=== PATIENT | female | born 1960 | race Caucasian/White ===

== ENCOUNTER 2021-03-01 18:05 | Outpatient (CLI) | payer OTHER, SELFPAY ==
[2021-03-01 18:17] VITALS: BP 124/65; PULSE 97; RESP 18; TEMP 38.3; O2SAT 94; BMI 37.8
[2021-03-01] MEDS: 0.9% Saline Lock 10 ML Syringe IV (18:28)
[2021-03-01 19:09] VITALS: BP 120/55; PULSE 91; RESP 16; TEMP 37.9; O2SAT 94
[2021-03-01 19:50] VITALS: BP 106/58; PULSE 99; RESP 16; TEMP 38.4; O2SAT 96
== END 2021-03-01 20:00 | disposition home or self-care (01) ==
LOC: MS3OUT 18:07 → MS3 18:08
PROVIDERS: Referring Provider Nurse Practitioner Adult Health; Visit Provider Nurse Practitioner Adult Health
DX: Z23 Encounter for immunization (principal); U07.1 COVID-19
CPT/HCPCS: J7050; M0245; Q0245; A4216

== ENCOUNTER 2021-03-06 15:19 | Inpatient (IN) | payer OTHER, SELFPAY ==
[2021-03-06] VITALS (11 sets, daily range): BP systolic 114–134; BP diastolic 61–71; PULSE 72–102; RESP 14–24; TEMP 36.9–39; O2SAT 86–96; BMI 37.8; BMI 35.7
[2021-03-06 16:37] LABS: Absolute Lymphocyte Count 0.96 X10^3/uL (0.83-4.51); Absolute Neutrophil Count 8.3 X10^3/uL (2.0-7.7); Basophil# 0.02 X10^3/uL; Basophil% 0.2 % (0-1); Eosinophil# 0.01 X10^3/uL; Eosinophils% 0.1 % (0-5); Hematocrit 34.3 % (37-47); Hemoglobin 11.9 g/dL (12.0-15.0); Lymphocyte # 0.96 X10^3/ul (0.83-4.51); Lymphocyte % 9.8 % (19-41); Mean Corp Hgb Conc 34.7 g/dL (32-36); Mean Corpuscular Hgb 30.1 pg (27.0-32.0); Mean Corpuscular Volume 86.6 fL (81-99); Mean Platelet Vol. 9.3 fl (6.2-12.0); Monocyte# 0.35 X10^3/uL; Monocyte% 3.6 % (0-10); NRBC Flagged by Analyzer 0 % (0-5); Neutrophil # 8.34 X10^3/uL (2.7-7.7); Neutrophil % 84.7 % (47-70); Platelet Count 311 K/mm3 (150-450); RBC Distribution Width CV 11.8 % (11.6-14.6); RBC Distribution Width SD 37.8 fl (35.1-43.9); Red Blood Count 3.96 M/mm3 (4.2-5.4); White Blood Count 9.8 K/mm3 (4.4-11.0)
[2021-03-06] MEDS: 0.9% Normal Saline 1,000 ML 1000 ML IV (16:38)
--- NOTE | 2021-03-06 16:42 | ED.VIS.DYS ---
HPI History of Present Illness Chief Complaint: Shortness of Breath Informant: patient Onset/Context/Timing Onset: Days Context: gradual Timing: Continuous Current Severity: Mild Maximum Severity: Mild Associated Symptoms cough Chest Pain: Positive for None Narrative Narrative: 60-year-old female unvaccinated diagnosed with Covid around 24 February. He says her symptoms started. Has had a positive test. Received monoclonal antibodies this past Monday. Is currently not on any steroids. Has not been hospitalized. She states she is feeling worse. No vomiting. She does have diarrhea. States the fever, chills and body aches have improved. PE Risk Factors: Negative for Cancer, OCP + Smoking + > 35, Prior DVT or PE, Recent immobilization, Recent surgery and Recent travel Prior similar symptoms: No Recent Illness/Hospitalization: No PFSH PFSH Medical History no medical history Allergy/AdvReac Type Severity Reaction Status Date / Time acetaminophen [From Tylenol] Allergy Itching Verified 03/06/21 15:21 Social History Smoking Status: Former smoker ROS ROS ED ROS Narrative Cough, fever and shortness of breath. Diarrhea. Review of Systems ROS Unobtainable: Denies due to encephalopathy Constitutional Constitutional ED: Reports fever(s) Eyes Eyes: Denies change in vision ENT ENT ED: Denies ear pain or sore throat Cardiovascular Cardiovascular: Denies chest pain or palpitations Respiratory/Chest Respiratory/Chest: Reports cough and dyspnea Gastrointestinal Gastrointestinal: Reports diarrhea; Denies abdominal pain, nausea or vomiting Genitourinary Genitourinary ED: Denies dysuria Musculoskeletal Musculoskeletal: Reports myalgias Integumentary Denies rash Neurologic Neurologic: Denies headache(s) Psychiatric Psychiatric: Denies depression Endocrine Endocrinology: Denies polyuria Hematologic/Lymphatic Hematologic/Lymphatic: Denies easy bruising Allergic/Immunologic Allergic/Immunologic ED: Denies urticaria EXAM Physical Exam Narrative Exam Narrative: 6-year-old female no acute distress vital signs stable she has a fever of 102.2. She does not look septic or toxic. Pulse ox is 86% consistent with hypoxia. On 2 L she is 94%. H EENT exam druggies memories. Neck nontender no lymphadenopathy. Lungs clear to auscultation bilaterally. Heart regular rhythm no murmur. Rate about 90. Abdomen soft nontender. Moving all 4 extremities. Calves are nontender without edema or cords. Neurologically patient is awake alert with no focal motor deficits. Const Vital Signs: 03/06/21 15:22 03/06/21 15:23 03/06/21 15:38 Temperature 102.2 F H Temperature Source Oral Pulse Rate 102 H Respiratory Rate 24 H Respiratory Effort Short of Breath Blood Pressure 122/71 H Blood Pressure Mean 88 Pulse Ox 86 94 Oxygen Delivery Method Room Air Nasal Cannula Nasal Cannula Oxygen Flow Rate (L/min) 2 4 03/06/21 16:33 03/06/21 18:10 Temperature Temperature Source Pulse Rate 91 89 Respiratory Rate 18 18 Respiratory Effort Blood Pressure 134/68 H Blood Pressure Mean 90 Pulse Ox 93 96 Oxygen Delivery Method Nasal Cannula Nasal Cannula Oxygen Flow Rate (L/min) 3 3 Positive well nourished, well developed and obese; Negative for cachectic, contractures or unkempt General Appearance ED: well developed and NAD; Negative for unkempt, cachectic, contractures or pallor Nutritional Appearance: obese; Negative for cachectic HEENT Reports dry mucous membranes atraumatic; Negative for trauma or tenderness Mouth ED: Yes dry mucous membranes Mouth: dry mucous membranes Eyes PERRL and EOMs intact bilaterally Neck no lymphadenopathy, supple, no meningeal signs and no JVD General: Negative for tenderness Resp normal respiratory effort and clear to auscultation bilaterally Auscultation: Negative for rales, rhonchi or wheezes Cardio regular rate, regular rhythm, S1 normal heart sound, S2 normal heart sound and no murmurs GI non-tender, non-distended and no masses Auscultation: normoactive bowel sounds Palpation: soft; Negative for tender, guarding or rebound tenderness present Back/Spine no CVA tenderness and normal to inspection Extremity normal to inspection General Extremety ED: Negative for edema or tenderness General Extremity: Negative for edema Neuro oriented x3 and CN's II-XII intact bilaterally Sensorium / Orientation: alert, oriented to person and oriented to place; Negative for oriented to time, orientation impaired, confused, lethargic or stuporous Motor Exam: strength 5/5 throughout Psych mental status grossly normal Appearance: Negative for unkempt Thought Process: normal thought process Skin no wounds General Skin Exam: Negative for jaundice or pallor Lesions: no lesions Rashes: no rashes MDM MDM MDM Narrative Medical decision making narrative: 60-year-old female with Covid states she is feeling more short of breath. Chest x-ray and labs are pending. She is unvaccinated. She has received monoclonal antibodies in the last 6 days. She will be treated with IV fluids, and p.o. Decadron. Repeat exam patient is resting comfortably. She had I went over her test results. Given the extent of her Covid pneumonitis and her hypoxia IMO to speak the hospitalist about admitting her. Lab Data Attestation: I reviewed the patient's lab results. Lab results narrative: CBC shows a white count of 9. Hemoglobin 11.9. Electrolytes show potassium of 3.3 gap of 10 normal BUN and creatinine. Liver enzymes total bilirubin is 1.9. Alk phos of 161. Labs: Laboratory Results - last 24 hr 03/06/21 03/06/21 16:32 16:32 WBC 9.8 RBC 3.96 L Hgb 11.9 L Hct 34.3 L MCV 86.6 MCH 30.1 MCHC 34.7 RDW Std Deviation 37.8 RDW Coeff of Leonila 11.8 Plt Count 311 MPV 9.3 Immature Gran % (Auto) 1.600 H Neut % (Auto) 84.7 H Lymph % (Auto) 9.8 L [place] % (Auto) 3.6 Eos % (Auto) 0.1 Baso % (Auto) 0.2 Absolute Neuts (auto) 8.3 H Absolute Lymphs (auto) 0.96 Nucleated RBC % 0 Sodium 136 Potassium 3.3 L Chloride 100 Carbon Dioxide 26.0 Anion Gap 10 BUN 14 Creatinine 0.90 Estim Creat Clear Calc 57.40 Est GFR (MDRD) Af Amer 82 Est GFR (MDRD) Non-Af 67 BUN/Creatinine Ratio 15.5 Glucose 121 H Calcium 8.8 Total Bilirubin 1.90 H AST 53 H ALT 46 Alkaline Phosphatase 161 H Total Protein 7.5 Albumin 2.3 L Globulin 5.2 H Albumin/Globulin Ratio 0.4 L Radiography Chest X-Ray - ED: 1 View, Read by ED Physician, Right Infiltrate and Left Infiltrate Diagnostic Testing: Clinical Impression(s) from Imaging Studies Chest X-Ray 03/06/21 16:57 IMPRESSION: Bilateral patchy opacities suggestive of multifocal pneumonia. Electronically Signed: Candy Mix MD at 17:12 EST Tel , Service support , Chest x-ray portable, single view, interpreted myself the radiologist shows bilateral infiltrates consistent with Covid pneumonitis. Discharge Plan Triage Chief Complaint: Shortness of Breath ED Provider: Dylan Sepulveda Dx/Rx/DC Orders Clinical Impression: COVID-19, Hypoxia Primary Care Provider: Mai Vega Referrals: Mai Vega MD [Primary Care Provider] - Disposition Disposition: Acute Care Hospital [facility]
[2021-03-06 16:52] LABS: ALB/GLOB Ratio 0.4 RATIO (0.9-2.4); AST(SGOT) 53 U/L (15-37); Alanine Aminotransfer ALT/SGPT 46 U/L (13-56); Albumin, Serum 2.3 g/dL (3.2-5.0); Alkaline Phosphatase 161 U/L (45-117); Anion Gap 10 (5-15); BUN 14 mg/dL (7-18); BUN/Creat Ratio 15.5 RATIO (10-20); Calcium,Total 8.8 mg/dL (8.5-10.1); Chloride 100 mmol/L (98-107); EST Glomerular Filtration Rate 67 mL/min (>60); Est Glom Filt Rate - Afr Amer 82 mL/min (>60); Globulin 5.2 g/dL (2.2-4.2); Glucose 121 mg/dL (74-106); Potassium 3.3 mmol/L (3.5-5.1); Protein, Total 7.5 g/dL (6.4-8.2); Sodium Level 136 mmol/L (136-145)
--- NOTE | 2021-03-06 16:57 | RAD_ITS ---
STUDY: X-RAY CHEST REASON FOR EXAM: Female, 60 years old. Covid TECHNIQUE: Single frontal view of the chest. COMPARISON: None. FINDINGS: There are bilateral patchy opacities throughout the mid and lower lungs. Normal size heart. Normal mediastinum and tiffanie. Normal visualized pulmonary arteries. Normal visualized aortic arch and descending thoracic aorta. Normal visualized thoracic spine. Normal visualized ribs, clavicles, and shoulders. There are postsurgical changes of the lower cervical spine. There is no demonstrated abnormality of the visualized soft tissue structures of the upper abdomen. RAD/Chest 1 View (Portable) IMPRESSION: Bilateral patchy opacities suggestive of multifocal pneumonia. Electronically Signed: Candy Mix MD at 17:12 EST Tel , Service support ,
[2021-03-06] MEDS: dexAMETHasone 4 MG Tablet 6 MG PO (18:08)
[2021-03-06] MEDS: Ibuprofen 600 MG Tablet PO (18:09)
--- NOTE | 2021-03-06 19:09 | HP.PCM.HOS_ITS ---
HPI - General General Date of Admission: 03/06/21 HPI Narrative DEISI PARADA, is a 60 F who presents with 10-day history of worsening shortness of breath, cough, as well as diarrhea. Diarrhea is runny but not watery. The patient had symptoms beginning the day before and also has family members that are sick with COVID infection. She is not vaccinated. Patient was taking ibuprofen at home and fluids but she has had worsening PO intake and anorexia. She did not take any herbal supplements or steroids but she did try monoclonal antibody infusion on Monday. She recorded fevers up to 102 at home, for which she was treating with Tylenol. Patient does not know any previous medical history and is not on any medications. She has allergy to Tylenol in which she has itching and breaks out. Patient was previously 86% on room air in ED and improved to 96% on 4 L nasal cannula. CTA negative for PE, showing bilateral subsegmental atelectasis or pneumonitis characterization with typical COVID findings. She received steroids in ED. Past surgical history includes cholecystectomy and laminectomy surgery She does not use tobacco or alcohol. Family history is reviewed and not significant for any specific diseases. Dad at 50 years old of unknown cause. Past medical history: None PFSH Medical History no medical history Home Medications NK 03/06/21 [History Last Taken Unknown] Allergy/AdvReac Type Severity Reaction Status Date / Time acetaminophen [From Tylenol] Allergy Itching Verified 03/06/21 15:21 Social History Smoking Status: Former smoker ROS ROS Narrative Positive for fevers, anorexia, cough, headaches, SOB and diarrhea and insomnia. No CP or chest racing, no myaglias or skin rashes or dysuria, hematuria. No t rouble with seeing/hearing swallowing. No problems with mood or anxiety. Vital Signs Vital Signs Vital Signs: 03/06/21 15:22 03/06/21 15:23 03/06/21 15:38 Temperature 102.2 F H Temperature Source Oral Pulse Rate 102 H Respiratory Rate 24 H Respiratory Effort Short of Breath Blood Pressure 122/71 H Blood Pressure Mean 88 Pulse Ox 86 94 Oxygen Delivery Method Room Air Nasal Cannula Nasal Cannula Oxygen Flow Rate (L/min) 2 4 03/06/21 16:33 12/04/21 18:10 Temperature Temperature Source Pulse Rate 91 89 Respiratory Rate 18 18 Respiratory Effort Blood Pressure 134/68 H Blood Pressure Mean 90 Pulse Ox 93 96 Oxygen Delivery Method Nasal Cannula Nasal Cannula Oxygen Flow Rate (L/min) 3 3 Weight Weight: 220 lb Body Mass Index (BMI) 37.8 Physical Exam Const alert Constitutional Narrative: appears tired but able to converse. HEENT normocephalic and head/scalp atraumatic Neck no lymphadenopathy Resp Resp Narrative: + Dry cough. + Crackles b/l with good air movement, no wheezes. Auscultation: crackles bilateral Cardio regular rate and regular rhythm GI soft to palpation, non-tender and non-distended Extremity normal to inspection and no clubbing, cyanosis or edema Skin no rashes or lesions noted Neuro Sensorium / Orientation: alert Psych affect normal Results Lab / Micro Data Result Diagrams: 03/06/21 16:32 03/06/21 16:32 Labs: Laboratory Results - last 24 hr 03/06/21 16:32: WBC 9.8, RBC 3.96 L, Hgb 11.9 L, Hct 34.3 L, MCV 86.6, MCH 30.1, MCHC 34.7, RDW Std Deviation 37.8, RDW Coeff of Leonila 11.8, Plt Count 311, MPV 9.3, Immature Gran % (Auto) 1.600 H, Neut % (Auto) 84.7 H, Lymph % (Auto) 9.8 L, [place] % (Auto) 3.6, Eos % (Auto) 0.1, Baso % (Auto) 0.2, Absolute Neuts (auto) 8.3 H, Absolute Lymphs (auto) 0.96, Nucleated RBC % 0 03/06/21 16:32: Sodium 136, Potassium 3.3 L, Chloride 100, Carbon Dioxide 26.0, Anion Gap 10, BUN 14, Creatinine 0.90, Estim Creat Clear Calc 57.40, Est GFR (MDRD) Af Amer 82, Est GFR (MDRD) Non-Af 67, BUN/Creatinine Ratio 15.5, Glucose 121 H, Calcium 8.8, Total Bilirubin 1.90 H, AST 53 H, ALT 46, Alkaline Phosphatase 161 H, Total Protein 7.5, Albumin 2.3 L, Globulin 5.2 H, Albumin/Globulin Ratio 0.4 L Radiology Impression Chest X-Ray 03/06/21 16:57 IMPRESSION: Bilateral patchy opacities suggestive of multifocal pneumonia. Electronically Signed: Candy Mix MD at 17:12 EST Tel , Service support , Assessment & Plan Assessment/Plan (1) Hypoxia: (2) COVID-19: (3) Diarrhea due to COVID-19: (4) Decreased oral intake: PLAN: Covid infection -Start remdesivir and dexamethasone PLAN: 1. Acute hypoxemic respiratory failure secondary to COVID-19 pneumonia -Admit to [facility] with telemetry -Continue NC titrated to > 90% -Incentive spirometry and Pep therapy ordered -Check D-dimer and procalcitonin -Continue dexamethasone daily -Patient agreeable to initiate Remdesivir. Watch renal and liver function. -Patient placed on BID prophylactic Lovenox -Covid precautions ordered -Blood cultures pending -CBC and CMP ordered daily -Intensive nutritional support -Nutrition and PT consulted -Ibuprofen for fever. Allergy to tylenol -Sputum culture -Strep testing and Legionella antigen. -I encouraged patient to take good nutrition & eat to keep strength up -No empiric antibacterial agents at this point, evalaute and add if worsening. 2. Diarrhea - Monitor output - IV fluids if severe diarrhea, otherwise hold - PRN Zofran - Avoid Tylenol given allergy. - LIkely due to COVID infection. DVT: Lovenox Diet: Full Code: Full code with intubation. This was discussed with patient and she desires all measures be taken. Patrick Adamson MD Charges/Coding Visit Charges Inpatient E&M: 34666 Init Hosp L2
[2021-03-06 21:41] LABS: Procalcitonin 0.24 ng/mL (0.00-0.09)
[2021-03-06] MEDS: Enoxaparin 30 MG/0.3 ML Syringe SC (22:30)
[2021-03-06 22:32] LABS: D-Dimer Quantitative (DVT/PE) > 20.00 FEU/ug/m (0.27-0.49)
--- NOTE | 2021-03-06 22:44 | CT_ITS ---
HISTORY: High D-dimer, covid pneumonia, shortness of breath, cough EXAMINATION: CTA Chest W/ Contrast Injection (and W/O Contrast Images if performed) TECHNIQUE: Helically acquired images were obtained of the chest following IV contrast as per pulmonary angiogram protocol with MIP and MPR reconstructions. A radiation dose optimization technique was used for this scan. IV Contrast dosage and agent: 100mL [id number]-370 COMPARISON: None FINDINGS: LUNGS, PLEURA AND LARGE AIRWAYS: Extensive bilateral patchy and confluent groundglass airspace opacities. No discrete pulmonary mass. Airways are patent. No pleural effusion or pleural thickening. No pneumothorax. PULMONARY ARTERIES: No pulmonary arterial filling defects identified. AORTA AND GREAT VESSELS: No thoracic aortic aneurysm or dissection. Great vessels are patent. HEART AND PERICARDIUM: Heart size within normal limits. No significant pericardial effusion. MEDIASTINUM AND IRVING: Multiple slightly enlarged mediastinal and hilar lymph nodes, measuring up to 10 mm short axis diameter. Small hiatal hernia. THYROID: Unremarkable as visualized. UPPER ABDOMEN: Fatty infiltration of liver. BONES: No acute osseous abnormality. Degenerative endplate changes along spine. Partially imaged anterior cervical spinal fusion hardware. SOFT TISSUES: No acute findings. CT/CTA Chest W/WO Contrast IMPRESSION: 1. Multifocal bilateral groundglass pulmonary infiltrate compatible with atypical or viral pneumonia (COVID). 2. Slightly enlarged, reactive mediastinal and hilar lymph nodes 3. No pulmonary embolus identified. 4. Hepatic steatosis 5. Small hiatal hernia Individualized dose optimization techniques were used for this CT. at 0032 Reported and signed by: Bautista Haynes MD Electronically Signed: Bautista Haynes MD at 0:31 EST Tel , Service support ,
[2021-03-06] MEDS: Ipratropium/Albuterol Sulfate 3 ML AMPUL.NEB INHALATION (22:46)
[2021-03-06 22:53] LABS: Color, Urine Yellow (Yellow); Glucose, Dipstick Normal (Normal); Ketone-Dipstick 5 mg/dl (Negative); Leukocyte Esterase-Dipstick 25 /ul (Negative); Nitrite-Dipstick Negative (Negative); Occult Blood-Urine 50 /ul (Negative); Protein-Dipstick 100 mg/dl (Negative); Urine Clarity Clear (Clear); Urine Urobilinogen 4 mg/dl (Normal)
[2021-03-06 23:06] LABS: Urine Bilirubin Dipstick 1 mg/dL (Negative)
[2021-03-07] VITALS (17 sets, daily range): BP systolic 126–148; BP diastolic 55–70; PULSE 68–100; RESP 18–24; TEMP 36.4–37.3; O2SAT 93–94
[2021-03-07] MEDS: Potassium Chloride Oral Tablet 20 MEQ 40 MEQ PO ×2 (00:21→04:25)
[2021-03-07] MEDS: 0.9% Saline Lock 10 ML Syringe IV ×2 (00:21→04:29)
[2021-03-07] MEDS: 0.9% Normal Saline 1,000 ML 50 ML IV (00:21)
[2021-03-07] MEDS: Ipratropium/Albuterol Sulfate 3 ML AMPUL.NEB INHALATION ×4 (06:56→19:47)
[2021-03-07 07:10] LABS: Absolute Lymphocyte Count 0.53 X10^3/uL (0.83-4.51); Basophil# 0.02 X10^3/uL; Basophil% 0.3 % (0-1); Hematocrit 35.2 % (37-47); Hemoglobin 11.9 g/dL (12.0-15.0); Lymphocyte # 0.53 X10^3/ul (0.83-4.51); Lymphocyte % 6.8 % (19-41); Mean Corp Hgb Conc 33.8 g/dL (32-36); Mean Corpuscular Hgb 30.1 pg (27.0-32.0); Mean Corpuscular Volume 88.9 fL (81-99); Mean Platelet Vol. 9.7 fl (6.2-12.0); Monocyte# 0.16 X10^3/uL; NRBC Flagged by Analyzer 0 % (0-5); Neutrophil # 6.96 X10^3/uL (2.7-7.7); Neutrophil % 88.9 % (47-70); POSITIVE DIFFERENTIAL YES; Platelet Count 373 K/mm3 (150-450); RBC Distribution Width SD 39.3 fl (35.1-43.9); Red Blood Count 3.96 M/mm3 (4.2-5.4); White Blood Count 7.8 K/mm3 (4.4-11.0)
[2021-03-07 07:40] LABS: Differential Indicated SCAN CRITERIA MET
[2021-03-07 07:42] LABS: ALB/GLOB Ratio 0.4 RATIO (0.9-2.4); AST(SGOT) 44 U/L (15-37); Alanine Aminotransfer ALT/SGPT 41 U/L (13-56); Albumin, Serum 2.2 g/dL (3.2-5.0); Alkaline Phosphatase 151 U/L (45-117); Anion Gap 10 (5-15); BUN 13 mg/dL (7-18); BUN/Creat Ratio 12.6 RATIO (10-20); Calcium,Total 8.7 mg/dL (8.5-10.1); Chloride 107 mmol/L (98-107); Creatinine, Serum 1.03 mg/dL (0.55-1.02); EST Glomerular Filtration Rate 58 mL/min (>60); Est Glom Filt Rate - Afr Amer 70 mL/min (>60); Estimated Creatinine Clearance 50.16 ml/min; Globulin 5.3 g/dL (2.2-4.2); Glucose 152 mg/dL (74-106); Magnesium 2.5 mg/dL (1.6-2.6); Phosphorus 1.8 mg/dL (2.5-4.9); Potassium 3.4 mmol/L (3.5-5.1); Protein, Total 7.5 g/dL (6.4-8.2); Sodium Level 140 mmol/L (136-145)
[2021-03-07 10:01] LABS: Differential Comment SCANNED
[2021-03-07] MEDS: Enoxaparin 30 MG/0.3 ML Syringe SC (10:56)
[2021-03-07] MEDS: dexAMETHasone 4 MG Tablet 6 MG PO (10:57)
[2021-03-07] MEDS: Loperamide 2 MG Capsule PO (10:58)
[2021-03-07] MEDS: guaiFENesin/Codeine 5 ML UDC 10 ML PO (10:58)
--- NOTE | 2021-03-07 11:23 | PN.HOSP_ITS ---
Subjective Subjective Feels much better after being placed on oxygen. Objective Data Objective Data Vital Signs: Vital Signs Temp Pulse Resp BP Pulse Ox 36.6 C 83 18 129/64 H 94 03/07/21 10:41 03/07/21 10:41 03/07/21 10:41 03/07/21 10:41 03/07/21 10:41 Oxygen Flow Rate (L/min) 4 Oxygen Delivery Method Nasal Cannula Weight: 94.4 kg Body Mass Index (BMI) 35.7 Intake & Output: Intake and Output for Last 24 Hours 03/05/21 03/06/21 03/07/21 23:59 23:59 23:59 Intake Total 1000 / 1000 250 / 250 Balance 1000 / 1000 250 / 250 Lab / Micro Data Result Diagrams: 03/07/21 06:42 03/07/21 06:42 Labs: Laboratory Results - last 24 hr 03/06/21 16:32: WBC 9.8, RBC 3.96 L, Hgb 11.9 L, Hct 34.3 L, MCV 86.6, MCH 30.1, MCHC 34.7, RDW Std Deviation 37.8, RDW Coeff of Leonila 11.8, Plt Count 311, MPV 9.3, Immature Gran % (Auto) 1.600 H, Neut % (Auto) 84.7 H, Lymph % (Auto) 9.8 L, [place] % (Auto) 3.6, Eos % (Auto) 0.1, Baso % (Auto) 0.2, Absolute Neuts (auto) 8.3 H, Absolute Lymphs (auto) 0.96, Nucleated RBC % 0 03/06/21 16:32: Sodium 136, Potassium 3.3 L, Chloride 100, Carbon Dioxide 26.0, Anion Gap 10, BUN 14, Creatinine 0.90, Estim Creat Clear Calc 57.40, Est GFR (MDRD) Af Amer 82, Est GFR (MDRD) Non-Af 67, BUN/Creatinine Ratio 15.5, Glucose 121 H, Calcium 8.8, Total Bilirubin 1.90 H, AST 53 H, ALT 46, Alkaline Phosphatase 161 H, Total Protein 7.5, Albumin 2.3 L, Globulin 5.2 H, Albumin/Globulin Ratio 0.4 L 03/06/21 20:30: D-Dimer Quant (PE/DVT) > 20.00 H* 03/06/21 20:30: Procalcitonin 0.24 H 03/06/21 22:35: Urine Color Yellow, Urine Clarity Clear, Urine pH 6.0, Ur Specific [place] 1.010, Urine Protein 100 H, Urine Glucose (UA) Normal, Urine Ketones 5 H, Urine Occult Blood 50 H, Urine Nitrite Negative, Urine Bilirubin 1 H, Urine Urobilinogen 4 H, Ur Leukocyte Esterase 25 H 03/07/21 06:42: WBC 7.8, RBC 3.96 L, Hgb 11.9 L, Hct 35.2 L, MCV 88.9, MCH 30.1, MCHC 33.8, RDW Std Deviation 39.3, RDW Coeff of Leonila 12.0, Plt Count 373, MPV 9.7, Immature Gran % (Auto) 2.000 H, Neut % (Auto) 88.9 H, Lymph % (Auto) 6.8 L, [place] % (Auto) 2.0, Eos % (Auto) 0.0, Baso % (Auto) 0.3, Absolute Neuts (auto) 7.0, Absolute Lymphs (auto) 0.53 L, Nucleated RBC % 0, Differential Comment SCANNED 03/07/21 06:42: Sodium 140, Potassium 3.4 L, Chloride 107, Carbon Dioxide 23.0, Anion Gap 10, BUN 13, Creatinine 1.03 H, Estim Creat Clear Calc 50.16, Est GFR (MDRD) Af Amer 70, Est GFR (MDRD) Non-Af 58 L, BUN/Creatinine Ratio 12.6, Glucose 152 H, Calcium 8.7, Phosphorus 1.8 L, Magnesium 2.5, Total Bilirubin 0.80, AST 44 H, ALT 41, Alkaline Phosphatase 151 H, Total Protein 7.5, Albumin 2.2 L, Globulin 5.3 H, Albumin/Globulin Ratio 0.4 L Micro: Microbiology 03/06/21 22:35 Urine, Clean Catch Legionella Antigen - Final 03/06/21 22:35 Urine, Clean Catch Streptococcus pneumoniae Antigen (M - Final Radiography Diagnostic Testing: Radiology Impression Chest X-Ray 03/06/21 16:57 IMPRESSION: Bilateral patchy opacities suggestive of multifocal pneumonia. Electronically Signed: Candy Mix MD at 17:12 EST Tel , Service support , Chest CTA 03/06/21 22:44 IMPRESSION: 1. Multifocal bilateral groundglass pulmonary infiltrate compatible with atypical or viral pneumonia (COVID). 2. Slightly enlarged, reactive mediastinal and hilar lymph nodes 3. No pulmonary embolus identified. 4. Hepatic steatosis 5. Small hiatal hernia Individualized dose optimization techniques were used for this CT. at 0032 Reported and signed by: Bautista Haynes MD Electronically Signed: Bautista Haynes MD at 0:31 EST Tel , Service support , Physical Exam Const alert and no apparent distress HEENT Head and Scalp: normocephalic Resp normal respiratory effort, no retractions, no use of accessory muscles and clear to auscultation bilaterally Cardio regular rate, regular rhythm, S1 normal heart sound and S2 normal heart sound GI normal to inspection, nondistended, normoactive bowel sounds, soft to palpation, non-tender and non-distended Extremity normal to inspection Assessment & Plan Assessment/Plan (1) Acute respiratory failure with hypoxia: (2) COVID-19: (3) Diarrhea due to COVID-19: PLAN: 1. acute hypoxic respiratory failure * 2/2 COVID 19 pneumonia * 86% on RA, improved with oxygen. Currently on 4 liters * CTA reviewed and shows extensive bilateral infiltrates, no PE * coughing, non-productive. Add guaifenesin with codeine 2. Acute COVID 19 pneumonia * unvaccinated. * previously received MC antibody * Started 02/24, quarantine through 03/16 * continue dexa and remd * detailed slow recovery with COVID 19 with patient. 3. Diarrhea * ongoing since onset of Sx * add loperamide 4. VTE prophylaxis: LMWH Charges/Coding Visit Charges Inpatient E&M: 83945 Subs Hosp L2
[2021-03-07] MEDS: Ibuprofen 600 MG Tablet PO (19:27)
[2021-03-08] VITALS (19 sets, daily range): BP systolic 124–142; BP diastolic 49–77; PULSE 77–114; RESP 18–30; TEMP 37.1–37.9; O2SAT 88–95
[2021-03-08] MEDS: Enoxaparin 30 MG/0.3 ML Syringe SC ×3 (00:10→20:20)
[2021-03-08] MEDS: 0.9% Saline Lock 10 ML Syringe IV ×2 (00:10→05:12)
[2021-03-08] MEDS: guaiFENesin/Codeine 5 ML UDC 10 ML PO ×2 (00:31→16:20)
[2021-03-08 07:01] LABS: Absolute Neutrophil Count 11.9 X10^3/uL (2.0-7.7); Basophil# 0.02 X10^3/uL; Basophil% 0.1 % (0-1); Eosinophil# 0.02 X10^3/uL; Eosinophils% 0.1 % (0-5); Hematocrit 32.1 % (37-47); Hemoglobin 10.8 g/dL (12.0-15.0); Mean Corp Hgb Conc 33.6 g/dL (32-36); Mean Corpuscular Hgb 30.3 pg (27.0-32.0); Mean Corpuscular Volume 89.9 fL (81-99); Mean Platelet Vol. 9.9 fl (6.2-12.0); Monocyte# 0.42 X10^3/uL; Monocyte% 3.1 % (0-10); NRBC Flagged by Analyzer 0 % (0-5); Neutrophil # 11.85 X10^3/uL (2.7-7.7); Neutrophil % 88.6 % (47-70); Platelet Count 411 K/mm3 (150-450); RBC Distribution Width CV 12.6 % (11.6-14.6); RBC Distribution Width SD 41.3 fl (35.1-43.9); Red Blood Count 3.57 M/mm3 (4.2-5.4); White Blood Count 13.4 K/mm3 (4.4-11.0)
[2021-03-08] MEDS: Ipratropium/Albuterol Sulfate 3 ML AMPUL.NEB INHALATION ×4 (07:08→21:00)
[2021-03-08 07:25] LABS: ALB/GLOB Ratio 0.4 RATIO (0.9-2.4); AST(SGOT) 37 U/L (15-37); Alanine Aminotransfer ALT/SGPT 45 U/L (13-56); Albumin, Serum 2.1 g/dL (3.2-5.0); Alkaline Phosphatase 129 U/L (45-117); Anion Gap 9 (5-15); BUN 12 mg/dL (7-18); BUN/Creat Ratio 14.5 RATIO (10-20); Calcium,Total 8.8 mg/dL (8.5-10.1); Chloride 108 mmol/L (98-107); Creatinine, Serum 0.82 mg/dL (0.55-1.02); EST Glomerular Filtration Rate 75 mL/min (>60); Est Glom Filt Rate - Afr Amer 91 mL/min (>60); Globulin 4.8 g/dL (2.2-4.2); Glucose 105 mg/dL (74-106); Magnesium 2.1 mg/dL (1.6-2.6); Potassium 3.7 mmol/L (3.5-5.1); Protein, Total 6.9 g/dL (6.4-8.2); Sodium Level 141 mmol/L (136-145)
[2021-03-08] MEDS: Ibuprofen 600 MG Tablet PO ×3 (09:38→22:12)
[2021-03-08] MEDS: dexAMETHasone 4 MG Tablet 6 MG PO (09:38)
--- NOTE | 2021-03-08 14:58 | PN.HOSP_ITS ---
Subjective Subjective Cough improved. Diarrhea improved. Mouth is sore, similar to when she has had thrush in the past. Objective Data Objective Data Vital Signs: Vital Signs Temp Pulse Resp BP Pulse Ox 37.5 C H 91 22 H 130/64 H 91 03/08/21 14:24 03/08/21 14:30 03/08/21 14:24 03/08/21 14:24 03/08/21 14:24 Oxygen Flow Rate (L/min) 4 Oxygen Delivery Method Nasal Cannula Weight: 94.4 kg Body Mass Index (BMI) 35.7 Intake & Output: Intake and Output for Last 24 Hours 03/06/21 03/07/21 03/08/21 23:59 23:59 23:59 Intake Total 1000 / 1000 2089 250 / 250 Balance 1000 / 999 250 / 250 Lab / Micro Data Result Diagrams: 03/08/21 06:42 03/08/21 06:42 Labs: Laboratory Results - last 24 hr 03/08/21 06:42: WBC 13.4 H, RBC 3.57 L, Hgb 10.8 L, Hct 32.1 L, MCV 89.9, MCH 30.3, MCHC 33.6, RDW Std Deviation 41.3, RDW Coeff of Leonila 12.6, Plt Count 411, MPV 9.9, Immature Gran % (Auto) 2.100 H, Neut % (Auto) 88.6 H, Lymph % (Auto) 6.0 L, [place] % (Auto) 3.1, Eos % (Auto) 0.1, Baso % (Auto) 0.1, Absolute Neuts (auto) 11.9 H, Absolute Lymphs (auto) 0.80 L, Nucleated RBC % 0 03/08/21 06:42: Sodium 141, Potassium 3.7, Chloride 108 H, Carbon Dioxide 24.0, Anion Gap 9, BUN 12, Creatinine 0.82, Estim Creat Clear Calc 63.00, Est GFR (MDRD) Af Amer 91, Est GFR (MDRD) Non-Af 75, BUN/Creatinine Ratio 14.5, Glucose 105, Calcium 8.8, Magnesium 2.1, Total Bilirubin 0.60, AST 37, ALT 45, Alkaline Phosphatase 129 H, Total Protein 6.9, Albumin 2.1 L, Globulin 4.8 H, Albumin/Globulin Ratio 0.4 L Micro: Microbiology 03/06/21 22:35 Urine, Clean Catch Legionella Antigen - Final 03/06/21 22:35 Urine, Clean Catch Streptococcus pneumoniae Antigen (M - Final Physical Exam Const alert and no apparent distress Constitutional Narrative: appears tired but able to converse. HEENT normocephalic and head/scalp atraumatic HEENT Narrative: thrush on soft palate and bilateral buccal mucosa. Head and Scalp: normocephalic Neck no lymphadenopathy Resp normal respiratory effort, no retractions, no use of accessory muscles and clear to auscultation bilaterally Resp Narrative: + Dry cough. + Crackles b/l with good air movement, no wheezes. Auscultation: crackles bilateral Cardio regular rate, regular rhythm, S1 normal heart sound and S2 normal heart sound GI normal to inspection, nondistended, normoactive bowel sounds, soft to palpation, non-tender and non-distended Extremity normal to inspection Peripheral Pulses: Yes pulses 2+ throughout, brachial pulses present, radial pulses present and ulnar pulses present Skin no rashes or lesions noted Neuro Sensorium / Orientation: alert Psych affect normal Assessment & Plan Assessment/Plan (1) Acute respiratory failure with hypoxia: (2) COVID-19: (3) Diarrhea due to COVID-19: (4) Thrush: PLAN: 1. acute hypoxic respiratory failure * 2/2 COVID 19 pneumonia * 86% on RA, improved with oxygen. Currently on 4 liters * CTA reviewed and shows extensive bilateral infiltrates, no PE * coughing, non-productive. Add guaifenesin with codeine * 03/08: feeling better. 2. Acute COVID 19 pneumonia * unvaccinated. * previously received MC antibody * Started 02/24, quarantine through 03/16 * continue dexa and remd * detailed slow recovery with COVID 19 with patient. 3. Diarrhea * improved * ongoing since onset of Sx * add loperamide 4. Thrush * add nystatin 5. VTE prophylaxis: LMWH Charges/Coding Visit Charges Inpatient E&M: 16639 Subs Hosp L2
--- NOTE | 2021-03-08 16:00 | NURSING ---
Pt assisted into the bathroom and back into the bed. patient asked to lay on her side or prone. patient is currently resting on her right side. denies further needs at this time. 93% on 4L N/C.
--- NOTE | 2021-03-08 16:20 | CASEMGMT ---
JACKIE PHILLIP Assessment: Face to Face with pt for initial transition planning/care coordination assessment. JACKIE PHILLIP introduced self and role at [facility], pt voices understanding and consents to assessment. Pt is A/O x4 and answers all questions appropriately at this time. Pt lying in bed with O2 on in no distress with eyes closed throughout assessment. Nurse in room as well. Care providers, pharmacy, and demographics verified/updated. Admitting Dx: acute hypoxic respiratory failure PCP:Gary Specialists:Pt denies. Preferred [facility]acy: [facility] [place] Insurance: MMO Prescription Benefit: yes LW/HPOA: Pt denies having a LW/DPOA and denies need for info regarding AD. LNOK: Juanito Lockwood, Living Arrangements: Pt lives with and two sons in a single story house with 2 steps to enter. Pt reports she is I in ADL's and denies concerns at home. Transportation: Pt drives self and denies concerns with transportation. DME/HHC/SNF: Pt denies having any DME. Recommended pt obtain a pulse ox. Pt denies hx of HHC or SNF stays. Pt was first tested at urgent care. Pt states her and two sons are also positive for COVID. She does have family who can provide her with groceries and supplies while in quarantine. Provided pt with a list of local DME companies should she need O2 on dc, pt denies preference. Pt states no concerns with going home at time of dc. Pt states no further concerns/needs. CM to follow. Advised pt to ask CM if any further question/concerns/needs arise, voices understanding. Pt Goal: Home Plan: Home
--- NOTE | 2021-03-08 16:25 | NURSING ---
Pt given Robitussin AC d/t coughing. pt denies further needs at this time.
[2021-03-08] MEDS: NYSTATIN 500,000 UNIT/5 ML UDC 500000 UNIT PO ×2 (17:37→20:20)
[2021-03-09] VITALS (25 sets, daily range): BP systolic 118–151; BP diastolic 56–70; PULSE 80–110; RESP 16–26; TEMP 36.6–37.4; O2SAT 86–98
[2021-03-09] MEDS: Ipratropium/Albuterol Sulfate 3 ML AMPUL.NEB INHALATION ×7 (00:10→23:28)
[2021-03-09 07:57] LABS: Absolute Lymphocyte Count 0.86 X10^3/uL (0.83-4.51); Absolute Neutrophil Count 6.8 X10^3/uL (2.0-7.7); Basophil# 0.02 X10^3/uL; Basophil% 0.2 % (0-1); Eosinophils% 2.4 % (0-5); Hematocrit 31.7 % (37-47); Hemoglobin 10.7 g/dL (12.0-15.0); Lymphocyte # 0.86 X10^3/ul (0.83-4.51); Lymphocyte % 10.2 % (19-41); Mean Corp Hgb Conc 33.8 g/dL (32-36); Mean Corpuscular Hgb 30.2 pg (27.0-32.0); Mean Corpuscular Volume 89.5 fL (81-99); Mean Platelet Vol. 9.6 fl (6.2-12.0); Monocyte# 0.28 X10^3/uL; Monocyte% 3.3 % (0-10); NRBC Flagged by Analyzer 0 % (0-5); Neutrophil # 6.78 X10^3/uL (2.7-7.7); Neutrophil % 80.2 % (47-70); POSITIVE COUNT YES; Platelet Count 379 K/mm3 (150-450); RBC Distribution Width CV 12.8 % (11.6-14.6); RBC Distribution Width SD 42.5 fl (35.1-43.9); Red Blood Count 3.54 M/mm3 (4.2-5.4); White Blood Count 8.5 K/mm3 (4.4-11.0)
[2021-03-09] MEDS: Enoxaparin 30 MG/0.3 ML Syringe SC ×2 (08:01→21:26)
[2021-03-09] MEDS: dexAMETHasone 4 MG Tablet 6 MG PO (08:01)
[2021-03-09] MEDS: Ibuprofen 600 MG Tablet PO ×2 (08:01→18:21)
[2021-03-09] MEDS: NYSTATIN 500,000 UNIT/5 ML UDC 500000 UNIT PO ×4 (08:01→21:27)
[2021-03-09 08:12] LABS: Differential Indicated SCAN CRITERIA MET
[2021-03-09 08:52] LABS: ALB/GLOB Ratio 0.4 RATIO (0.9-2.4); AST(SGOT) 41 U/L (15-37); Alanine Aminotransfer ALT/SGPT 36 U/L (13-56); Albumin, Serum 1.9 g/dL (3.2-5.0); Alkaline Phosphatase 120 U/L (45-117); Anion Gap 8 (5-15); BUN 11 mg/dL (7-18); BUN/Creat Ratio 17.2 RATIO (10-20); Calcium,Total 8.5 mg/dL (8.5-10.1); Chloride 105 mmol/L (98-107); Creatinine, Serum 0.64 mg/dL (0.55-1.02); EST Glomerular Filtration Rate 100 mL/min (>60); Est Glom Filt Rate - Afr Amer 121 mL/min (>60); Estimated Creatinine Clearance 80.72 ml/min; Globulin 4.7 g/dL (2.2-4.2); Glucose 108 mg/dL (74-106); Magnesium 1.8 mg/dL (1.6-2.6); Potassium 4.2 mmol/L (3.5-5.1); Protein, Total 6.6 g/dL (6.4-8.2); Sodium Level 137 mmol/L (136-145)
--- NOTE | 2021-03-09 12:59 | PN.HOSP_ITS ---
Subjective Subjective Increased oxygen requirement. No further diarrhea. Objective Data Objective Data Vital Signs: Vital Signs Temp Pulse Resp BP Pulse Ox 37.4 C H 82 20 H 130/70 H 98 03/09/21 11:56 03/09/21 11:56 03/09/21 11:56 03/09/21 11:56 03/09/21 11:56 Oxygen Flow Rate (L/min) 11 Oxygen Delivery Method Nasal Cannula Weight: 94.4 kg Body Mass Index (BMI) 35.7 Intake & Output: Intake and Output for Last 24 Hours 03/07/21 03/08/21 03/09/21 23:59 23:59 23:59 Intake Total 2089 500 / 500 1800 / 1800 Balance 2089 500 / 500 1800 / 1800 Lab / Micro Data Result Diagrams: 03/09/21 07:05 03/09/21 07:05 Labs: Laboratory Results - last 24 hr 03/09/21 07:05: WBC 8.5, RBC 3.54 L, Hgb 10.7 L, Hct 31.7 L, MCV 89.5, MCH 30.2, MCHC 33.8, RDW Std Deviation 42.5, RDW Coeff of Leonila 12.8, Plt Count 379, MPV 9.6, Immature Gran % (Auto) 3.700 H, Neut % (Auto) 80.2 H, Lymph % (Auto) 10.2 L , [place] % (Auto) 3.3, Eos % (Auto) 2.4, Baso % (Auto) 0.2, Absolute Neuts (auto) 6.8, Absolute Lymphs (auto) 0.86, Nucleated RBC % 0 03/09/21 07:05: Sodium 137, Potassium 4.2, Chloride 105, Carbon Dioxide 24.0, Anion Gap 8, BUN 11, Creatinine 0.64, Estim Creat Clear Calc 80.72, Est GFR (MDRD) Af Amer 121, Est GFR (MDRD) Non-Af 100, BUN/Creatinine Ratio 17.2, Glucose 108 H, Calcium 8.5, Magnesium 1.8, Total Bilirubin 0.70, AST 41 H, ALT 36, Alkaline Phosphatase 120 H, Total Protein 6.6, Albumin 1.9 L, Globulin 4.7 H , Albumin/Globulin Ratio 0.4 L Micro: Microbiology 03/06/21 08:05 Blood Culture (Wb) - Right Hand Blood Culture - Preliminary No growth in 48 hours. 03/06/21 22:35 Urine, Clean Catch Legionella Antigen - Final 03/06/21 22:35 Urine, Clean Catch Streptococcus pneumoniae Antigen (M - Final Physical Exam Const alert and no apparent distress Resp normal respiratory effort, no retractions, no use of accessory muscles and clear to auscultation bilaterally Cardio regular rate, regular rhythm, S1 normal heart sound and S2 normal heart sound GI normal to inspection, nondistended, normoactive bowel sounds, soft to palpation, non-tender and non-distended Neuro Sensorium / Orientation: awake and alert Assessment & Plan Assessment/Plan (1) Acute respiratory failure with hypoxia: (2) COVID-19: (3) Diarrhea due to COVID-19: (4) Thrush: PLAN: 1. acute hypoxic respiratory failure * 2/2 COVID 19 pneumonia * 86% on RA, improved with oxygen. Currently on 4 liters * CTA reviewed and shows extensive bilateral infiltrates, no PE * coughing, non-productive. Add guaifenesin with codeine * 12/6: feeling better. * 12.7: worse. Furosemide challenge. 2. Acute COVID 19 pneumonia * unvaccinated. * previously received MC antibody * Started 02/24, quarantine through 03/16 * continue dexa and remd * detailed slow recovery with COVID 19 with patient. 3. Diarrhea * improved * ongoing since onset of Sx * add loperamide 4. Thrush * add nystatin 5. VTE prophylaxis: LMWH Charges/Coding Visit Charges Inpatient E&M: 30335 Subs Hosp L2
[2021-03-09] MEDS: 0.9% Saline Lock 10 ML Syringe IV (15:04)
[2021-03-09] MEDS: Furosemide 40 MG/4 ML Vial IV (15:04)
[2021-03-10] VITALS (23 sets, daily range): BP systolic 122–145; BP diastolic 59–72; PULSE 78–128; RESP 18–24; TEMP 37–37.3; O2SAT 5–98
[2021-03-10] MEDS: Ipratropium/Albuterol Sulfate 3 ML AMPUL.NEB INHALATION ×6 (03:00→23:51)
[2021-03-10 06:50] LABS: Absolute Neutrophil Count 9.7 X10^3/uL (2.0-7.7); Basophil# 0.05 X10^3/uL; Basophil% 0.4 % (0-1); Eosinophil# 0.06 X10^3/uL; Eosinophils% 0.5 % (0-5); Hematocrit 32.9 % (37-47); Hemoglobin 11.2 g/dL (12.0-15.0); Lymphocyte % 7.7 % (19-41); Mean Corpuscular Hgb 30.9 pg (27.0-32.0); Mean Corpuscular Volume 90.6 fL (81-99); Mean Platelet Vol. 10.3 fl (6.2-12.0); Monocyte# 0.51 X10^3/uL; Monocyte% 4.4 % (0-10); NRBC Flagged by Analyzer 1.2 % (0-5); Neutrophil # 9.69 X10^3/uL (2.7-7.7); Neutrophil % 82.9 % (47-70); POSITIVE COUNT YES; Platelet Count 329 K/mm3 (150-450); RBC Distribution Width CV 12.7 % (11.6-14.6); RBC Distribution Width SD 42.5 fl (35.1-43.9); Red Blood Count 3.63 M/mm3 (4.2-5.4); White Blood Count 11.7 K/mm3 (4.4-11.0)
[2021-03-10 07:05] LABS: Differential Indicated SCAN CRITERIA MET
[2021-03-10 07:13] LABS: ALB/GLOB Ratio 0.4 RATIO (0.9-2.4); AST(SGOT) 41 U/L (15-37); Alanine Aminotransfer ALT/SGPT 45 U/L (13-56); Albumin, Serum 1.9 g/dL (3.2-5.0); Alkaline Phosphatase 114 U/L (45-117); Anion Gap 11 (5-15); BUN 16 mg/dL (7-18); Calcium,Total 8.8 mg/dL (8.5-10.1); Chloride 106 mmol/L (98-107); Globulin 4.9 g/dL (2.2-4.2); Glucose 130 mg/dL (74-106); Magnesium 1.9 mg/dL (1.6-2.6); Potassium 4.1 mmol/L (3.5-5.1); Protein, Total 6.8 g/dL (6.4-8.2); Sodium Level 139 mmol/L (136-145)
[2021-03-10 08:30] LABS: Differential Comment SCANNED
[2021-03-10] MEDS: NYSTATIN 500,000 UNIT/5 ML UDC 500000 UNIT PO ×4 (08:37→21:50)
[2021-03-10] MEDS: dexAMETHasone 4 MG Tablet 6 MG PO (08:37)
[2021-03-10] MEDS: Enoxaparin 30 MG/0.3 ML Syringe SC ×2 (08:37→21:50)
[2021-03-10] MEDS: guaiFENesin 10 ML UDC (200MG/10ML) 20 ML PO (08:45)
--- NOTE | 2021-03-10 13:14 | PN.HOSP_ITS ---
Subjective Subjective Breathing better. Objective Data Objective Data Vital Signs: Vital Signs Temp Pulse Resp BP Pulse Ox 37.1 C 99 20 H 133/69 H 95 03/10/21 08:32 03/10/21 11:20 03/10/21 10:49 03/10/21 08:32 03/10/21 12:49 Oxygen Flow Rate (L/min) 5 Oxygen Delivery Method High Flow Weight: 94.4 kg Body Mass Index (BMI) 35.7 Intake & Output: Intake and Output for Last 24 Hours 03/08/21 03/09/21 03/10/21 23:59 23:59 23:59 Intake Total 500 / 500 2950 / 2950 400 / 400 Balance 500 / 500 2950 / 2950 400 / 400 Lab / Micro Data Result Diagrams: 03/10/21 06:25 03/10/21 06:25 Labs: Laboratory Results - last 24 hr 03/10/21 06:25: WBC 11.7 H, RBC 3.63 L, Hgb 11.2 L, Hct 32.9 L, MCV 90.6, MCH 30.9, MCHC 34.0, RDW Std Deviation 42.5, RDW Coeff of Leonila 12.7, Plt Count 329, MPV 10.3, Immature Gran % (Auto) 4.100 H, Neut % (Auto) 82.9 H, Lymph % (Auto) 7.7 L, Jay % (Auto) 4.4, Eos % (Auto) 0.5, Baso % (Auto) 0.4, Absolute Neuts (auto) 9.7 H, Absolute Lymphs (auto) 0.90, Nucleated RBC % 1.2, Differential Comment SCANNED 03/10/21 06:25: Sodium 139, Potassium 4.1, Chloride 106, Carbon Dioxide 22.0, Anion Gap 11, BUN 16, Creatinine 0.68, Estim Creat Clear Calc 75.97, Est GFR (MDRD) Af Amer 113, Est GFR (MDRD) Non-Af 94, BUN/Creatinine Ratio 23.5 H, Glucose 130 H, Calcium 8.8, Magnesium 1.9, Total Bilirubin 0.40, AST 41 H, ALT 45, Alkaline Phosphatase 114, Total Protein 6.8, Albumin 1.9 L, Globulin 4.9 H, Albumin/Globulin Ratio 0.4 L Micro: Microbiology 03/06/21 08:05 Blood Culture (Wb) - Right Hand Blood Culture - Preliminary No growth in 48 hours. 03/06/21 22:35 Urine, Clean Catch Legionella Antigen - Final 03/06/21 22:35 Urine, Clean Catch Streptococcus pneumoniae Antigen (M - Final Radiography Diagnostic Testing: Radiology Impression Chest X-Ray 03/06/21 16:57 IMPRESSION: Bilateral patchy opacities suggestive of multifocal pneumonia. Electronically Signed: Candy Mix MD at 17:12 EST Tel , Service support , Chest CTA 03/06/21 22:44 IMPRESSION: 1. Multifocal bilateral groundglass pulmonary infiltrate compatible with atypical or viral pneumonia (COVID). 2. Slightly enlarged, reactive mediastinal and hilar lymph nodes 3. No pulmonary embolus identified. 4. Hepatic steatosis 5. Small hiatal hernia Individualized dose optimization techniques were used for this CT. at 0032 Reported and signed by: Bautista Haynes MD Electronically Signed: Bautista Haynes MD at 0:31 EST Tel , Service support , Physical Exam Const no apparent distress HEENT head/scalp atraumatic, moist oral mucous membranes, oropharynx normal and dentition normal Head and Scalp: normocephalic Resp normal respiratory effort, no retractions, no use of accessory muscles and clear to auscultation bilaterally Cardio regular rate, regular rhythm, S1 normal heart sound and S2 normal heart sound GI normal to inspection, nondistended, normoactive bowel sounds, soft to palpation, non-tender and non-distended Assessment & Plan Assessment/Plan (1) Acute respiratory failure with hypoxia: (2) COVID-19: (3) Hypoxia: (4) Thrush: PLAN: 1. acute hypoxic respiratory failure * 2/2 COVID 19 pneumonia * 86% on RA, improved with oxygen. Currently on 4 liters * CTA reviewed and shows extensive bilateral infiltrates, no PE * coughing, non-productive. Add guaifenesin with codeine * 03/08: feeling better. * .7: worse. Furosemide challenge. * 12/8: improved, down to 5l 2. Acute COVID 19 pneumonia * unvaccinated. * previously received MC antibody * Started 02/24, quarantine through 03/16 * continue dexa and remd * detailed slow recovery with COVID 19 with patient. 3. Diarrhea * improved * ongoing since onset of Sx * add loperamide 4. Thrush * add nystatin 5. VTE prophylaxis: LMWH Charges/Coding Visit Charges Inpatient E&M: 10797 Subs Hosp L2
[2021-03-10 14:08] LABS: BUN/Creat Ratio 19.8 RATIO (10-20); Creatinine, Serum 0.81 mg/dL (0.55-1.02); EST Glomerular Filtration Rate 77 mL/min (>60); Est Glom Filt Rate - Afr Amer 93 mL/min (>60); Estimated Creatinine Clearance 63.78 ml/min
[2021-03-10] MEDS: Ibuprofen 600 MG Tablet PO (21:51)
[2021-03-11] VITALS (14 sets, daily range): BP systolic 121–144; BP diastolic 64–78; PULSE 80–100; RESP 18–24; TEMP 36.6–37.2; O2SAT 87–99
[2021-03-11] MEDS: Ipratropium/Albuterol Sulfate 3 ML AMPUL.NEB INHALATION ×4 (03:40→14:53)
[2021-03-11] MEDS: Ibuprofen 600 MG Tablet PO (05:04)
[2021-03-11 07:40] LABS: Absolute Lymphocyte Count 1.71 X10^3/uL (0.83-4.51); Absolute Neutrophil Count 12.3 X10^3/uL (2.0-7.7); Basophil# 0.04 X10^3/uL; Basophil% 0.3 % (0-1); Eosinophil# 0.02 X10^3/uL; Eosinophils% 0.1 % (0-5); Hematocrit 33.2 % (37-47); Lymphocyte # 1.71 X10^3/ul (0.83-4.51); Lymphocyte % 11.1 % (19-41); Mean Corp Hgb Conc 33.1 g/dL (32-36); Mean Corpuscular Hgb 29.9 pg (27.0-32.0); Mean Corpuscular Volume 90.2 fL (81-99); Mean Platelet Vol. 9.3 fl (6.2-12.0); Monocyte# 0.92 X10^3/uL; NRBC Flagged by Analyzer 0 % (0-5); Neutrophil # 12.25 X10^3/uL (2.7-7.7); Neutrophil % 79.7 % (47-70); Platelet Count 429 K/mm3 (150-450); RBC Distribution Width CV 12.7 % (11.6-14.6); RBC Distribution Width SD 42.7 fl (35.1-43.9); Red Blood Count 3.68 M/mm3 (4.2-5.4); White Blood Count 15.4 K/mm3 (4.4-11.0)
[2021-03-11 08:12] LABS: ALB/GLOB Ratio 0.5 RATIO (0.9-2.4); AST(SGOT) 34 U/L (15-37); Alanine Aminotransfer ALT/SGPT 45 U/L (13-56); Albumin, Serum 2.2 g/dL (3.2-5.0); Alkaline Phosphatase 114 U/L (45-117); Anion Gap 6 (5-15); BUN 15 mg/dL (7-18); Calcium,Total 8.5 mg/dL (8.5-10.1); Chloride 104 mmol/L (98-107); Creatinine, Serum 0.71 mg/dL (0.55-1.02); EST Glomerular Filtration Rate 89 mL/min (>60); Est Glom Filt Rate - Afr Amer 107 mL/min (>60); Estimated Creatinine Clearance 72.76 ml/min; Globulin 4.5 g/dL (2.2-4.2); Glucose 102 mg/dL (74-106); Magnesium 1.9 mg/dL (1.6-2.6); Potassium 4.3 mmol/L (3.5-5.1); Protein, Total 6.7 g/dL (6.4-8.2); Sodium Level 139 mmol/L (136-145)
[2021-03-11] MEDS: NYSTATIN 500,000 UNIT/5 ML UDC 500000 UNIT PO ×3 (08:52→17:26)
[2021-03-11] MEDS: Enoxaparin 30 MG/0.3 ML Syringe SC (08:52)
[2021-03-11] MEDS: dexAMETHasone 4 MG Tablet 6 MG PO (08:53)
--- NOTE | 2021-03-11 15:45 | CASEMGMT ---
JACKIE PHILLIP NOTE: Ambulatory home O2 testing done. Pt qualifies for O2 @ 3 l/m continuously. Script faxed to [facility] for O2. Portable O2 taken from supply @ [facility]. TC to Kenisha @ [facility] and she was notified of O2 order and that tank taken from supply. Nikole ROJAS RN CM
--- NOTE | 2021-03-11 16:30 | PCM.DC ---
Discharge Instructions Diet Discharge Diet: No restrictions Activity Discharge Activity: Return to Normal Activity (ease back into normal routine. ) Additional Activity Instructions:: Oxygen 3 L/min at rest and then 4 L/min with exertion. Self isolate for at least 20 days since symptoms began (02/24-03/16/2021) AND at least one day (24 hours) have passed since resolution of fever without the use of fever-reducing agents AND improvement of symptoms (e.g., cough, shortness of breath) When around people in the same room, wear a face mask. Individuals also in the room should wear a mask. If possible, use a different bathroom and bedroom. Perform adequate hand hygiene. Avoid sharing dishes, glasses, etc. Dressing / Incision Call your doctor if you observe: Fever of 101 or Higher and Shortness of breath Follow Up Care Test Results: Test results from this visit will be discussed in further detail at your follow-up appointment, if applicable. Discharge Plan Admission Admit Date/Time: 03/06/21 19:32 Primary Reason for Your Visit: COVID 19 Attending Provider: Alex Estrada Primary Care Provider: Mai Vega Discharge Orders/Prescriptions Prescriptions: New dexamethasone 4 mg Tablet 6 mg PO DAILY Qty: 5 RF: 0 nystatin 100,000 unit/mL Suspension 500,000 unit PO 4X/DAY 10 Days Qty: 200 RF: 0 ibuprofen 600 mg Tablet 600 mg PO Q6H PRN PRN (Reason: Pain 1-10 Or Fever) Qty: 0 RF: 0 loperamide 2 mg Capsule 2 mg PO Q4H PRN PRN (Reason: Diarrhea) Qty: 0 RF: 0 No Action NK RF: 0 NK RF: 0 Referrals / Follow Up: Mai Vega MD [Primary Care Provider] - Within 2 Weeks Disposition Disposition (needs filled in before D/C Order can be placed): Home, Self Care
--- NOTE | 2021-03-11 16:35 | DS.PCM_ITS ---
Providers Date of Admission: 03/06/21 Primary Care Physician: Dr. Mai Vega MD Reason For Visit: ACUTE HYPOXIC RESPIRATORY FAILURE Diagnosis Discharge Diagnosis (1) COVID-19: Status: Acute Code(s): U07.1 - COVID-19 (2) Diarrhea due to COVID-19: Status: Acute Code(s): U07.1 - COVID-19; A08.39 - Other viral enteritis (3) Acute respiratory failure with hypoxia: Status: Acute Code(s): J96.01 - Acute respiratory failure with hypoxia (4) Thrush: Status: Acute Code(s): B37.0 - Candidal stomatitis Medications at Discharge Home Medications NK 03/01/21 NK 03/06/21 dexamethasone 6 mg PO DAILY #5 tab 03/11/21 ibuprofen 600 mg PO Q6H PRN PRN #0 tab 03/11/21 loperamide 2 mg PO Q4H PRN PRN #0 cap 03/11/21 nystatin 500,000 unit PO 4X/DAY 10 Days #200 ml 03/11/21 Hospital Course Operations None Procedures None Summary of Care Provided Minutes Spent on Discharge: 28 Hospital Course: 60-year-old female presents with shortness of breath hypoxia due to COVID-19. Course was rather uncomplicated and patient improved nicely. Issue patient developed was thrush and patient has been started on nystatin. 1. acute hypoxic respiratory failure 2/2 COVID 19 pneumonia 86% on RA, improved with oxygen. Currently on 4 liters CTA reviewed and shows extensive bilateral infiltrates, no PE coughing, non-productive. Add guaifenesin with codeine 12/6: feeling better. 12.7: worse. Furosemide challenge. 8: improved, down to 5l 03/11: Improved. 3 L with rest and 4 L with exertion. Patient will be d ischarged home. 2. Acute COVID 19 pneumonia unvaccinated. previously received MC antibody Started 02/24, quarantine through 03/16 Continue dexamethasone complete a 10-day course 3. Diarrhea improved ongoing since onset of Sx add loperamide 4. Thrush Continue nystatin Physical Exam Const alert Neck no lymphadenopathy Resp normal respiratory effort, no retractions, no use of accessory muscles and clear to auscultation bilaterally Cardio regular rate, regular rhythm, S1 normal heart sound and S2 normal heart sound GI normal to inspection, nondistended, normoactive bowel sounds, soft to palpation, non-tender and non-distended Extremity normal to inspection Medical Records Data Medical Nutrition Assessment Dietitian: Malnutrition Criteria Met Start: 03/10/21 16:12 Freq: Status: Active Protocol: Document 03/10/21 16:12 [facility] (Rec: 03/10/21 16:12 [facility] [id number]) Nutrition Malnutrition Evidence of Malnutrition Exists Yes Malnutrition (severe): Acute Illness/Injury Evidenced By Suboptimal Energy Intake ( Severe),Weight Loss (Severe) Intake Problem Inadequate Energy Intake Status Inactive Problem Clinical Problem Acute Disease or Injury Related Malnutrition Etiology related to covid and increased oxygen needs making it difficult for pt to consume adequate nutrition to meet pt est nutritional needs Signs/Symptoms as evidenced by pt poor/fair po intake and 5.5% wt loss in <1 month Status Active Problem Recommendation Dietitian Recommendations/Changes Continue regular diet. Will continue ensure compact 4 oz w/ meals. Weight / BMI Weight Weight: 94.4 kg Body Mass Index (BMI) 35.7 ABG / Lab / Microbiology Data Result Diagrams: 03/11/21 07:05 03/11/21 07:05 Laboratory: Laboratory Results - last 24 hr 03/11/21 07:05: WBC 15.4 H, RBC 3.68 L, Hgb 11.0 L, Hct 33.2 L, MCV 90.2, MCH 29.9, MCHC 33.1, RDW Std Deviation 42.7, RDW Coeff of Leonila 12.7, Plt Count 429, MPV 9.3, Immature Gran % (Auto) 2.800 H, Neut % (Auto) 79.7 H, Lymph % (Auto) 11.1 L, [place] % (Auto) 6.0, Eos % (Auto) 0.1, Baso % (Auto) 0.3, Absolute Neuts (auto) 12.3 H, Absolute Lymphs (auto) 1.71, Nucleated RBC % 0 03/11/21 07:05: Sodium 139, Potassium 4.3, Chloride 104, Carbon Dioxide 29.0, Anion Gap 6, BUN 15, Creatinine 0.71, Estim Creat Clear Calc 72.76, Est GFR (MDRD) Af Amer 107, Est GFR (MDRD) Non-Af 89, BUN/Creatinine Ratio 21.0 H, Glucose 102, Calcium 8.5, Magnesium 1.9, Total Bilirubin 0.50, AST 34, ALT 45, Alkaline Phosphatase 114, Total Protein 6.7, Albumin 2.2 L, Globulin 4.5 H, Albumin/Globulin Ratio 0.5 L Microbiology: Microbiology 03/06/21 08:05 Blood Culture (Wb) - Right Hand Blood Culture - Preliminary No growth in 48 hours. 03/06/21 22:35 Urine, Clean Catch Legionella Antigen - Final 03/06/21 22:35 Urine, Clean Catch Streptococcus pneumoniae Antigen (M - Final D/C Instructions Discharge Diet: No restrictions Additional Activity Instructions: Oxygen 3 L/min at rest and then 4 L/min with exertion. Self isolate for at least 20 days since symptoms began (02/24-03/16/2021) AND at least one day (24 hours) have passed since resolution of fever without the use of fever-reducing agents AND improvement of symptoms (e.g., cough, shortness of breath) When around people in the same room, wear a face mask. Individuals also in the room should wear a mask. If possible, use a different bathroom and bedroom. Perform adequate hand hygiene. Avoid sharing dishes, glasses, etc. Call your doctor if you observe: Fever of 101 or Higher and Shortness of breath Meaningful Use Info Meaningful Use Diagnoses (Choose all that apply): None applicable Discharge Plan Admission Admit Date/Time: 03/06/21 19:32 Primary Reason for Your Visit: COVID 19 Attending Provider: Alex Estrada Primary Care Provider: Mai Vega Discharge Orders/Prescriptions Prescriptions: New dexamethasone 4 mg Tablet 6 mg PO DAILY Qty: 5 RF: 0 nystatin 100,000 unit/mL Suspension 500,000 unit PO 4X/DAY 10 Days Qty: 200 RF: 0 ibuprofen 600 mg Tablet 600 mg PO Q6H PRN PRN (Reason: Pain 1-10 Or Fever) Qty: 0 RF: 0 loperamide 2 mg Capsule 2 mg PO Q4H PRN PRN (Reason: Diarrhea) Qty: 0 RF: 0 No Action NK RF: 0 NK RF: 0 Referrals / Follow Up: Mai Vega MD [Primary Care Provider] - Within 2 Weeks Disposition Disposition (needs filled in before D/C Order can be placed): Home, Self Care Charges/Coding Visit Charges Inpatient E&M: 62341 Disch Hosp
[2021-03-11] MEDS: Pantoprazole Sodium 40 MG Tablet PO (17:26)
== END 2021-03-11 19:20 | disposition home or self-care (01) | DRG 177 ==
LOC: ED 18:59 → MS3 19:51
PROVIDERS: Admitting Provider Hospitalist; Emergency Provider Emergency Medicine; PCP Family Medicine Sports Medicine
DX: U07.1 COVID-19 (principal); J96.01 Acute respiratory failure with hypoxia; J12.82 Pneumonia due to coronavirus disease 2019; B37.0 Candidal stomatitis; A08.39 Other viral enteritis; Z28.3 Underimmunization status; Z88.6 Allergy status to analgesic agent; Z87.891 Personal history of nicotine dependence
CPT/HCPCS: 36415; 71045; 71275; 80053; 81002; 83735; 84100; 84145; 85025; 85379; 87040; 87449; 94640; 94667; 94668; 94762; 97161; 99251; 99284; J7030; J7040; J7050; Q9967; A4216; G0463; J1940